=== PATIENT | female | born 1980 | race Two or more races ===

== ENCOUNTER 2023-11-04 00:30 | Emergency (ER) | payer MEDICAID, OTHER ==
[~2023-11-04] VITALS: Ht 162.6 cm; Wt 105.0 kg
[2023-11-04 01:39] LABS: Basophils # (auto) 0 10 ^3/uL (0-0.2); Basophils % (auto) 0.4 % (0.0-2.0); Eosinophils # (auto) 0 10 ^3/uL (0-0.8); Eosinophils % (auto) 0.2 % (0.0-7.0); Hemoglobin 15.1 g/dL (12.2-16.2); Lymphocytes # (auto) 0.9 10 ^3/uL (0.4-5.4); Lymphocytes % (auto) 12.7 % (10.0-50.0); Mean Corpuscular Hemoglobin 28.2 pg (28.0-32.0); Mean Corpuscular Volume 85.5 fL (80.0-100.0); Monocytes # (auto) 0.3 10 ^3/uL (0-1.3); Monocytes % (auto) 3.9 % (0.0-12.0); Neutrophils # (auto) 5.9 10 ^3/uL (1.6-8.6); Neutrophils % (auto) 82.8 % (37.0-80.0); Red Blood Cells 5.38 10^6/uL (4.0-5.20); White Blood Cell 7.1 10^3/uL (4.4-10.8)
[2023-11-04 01:59] LABS: Alanine Aminotransferase 39 U/L (7-40); Albumin 4.7 g/dL (3.2-4.8); Alkaline Phosphatase 69 U/L (46-116); Anion Gap 11 (5-15); Aspartate Aminotransferase 16 U/L (13-40); BUN/Creatinine Ratio 5.9 (10.0-20.0); Bilirubin, Total 0.7 mg/dL (0.2-1.0); Blood Urea Nitrogen 28 mg/dL (9-23); Calcium 10.2 mg/dL (8.7-10.4); Carbon Dioxide 24 mmol/L (20-30); Chloride 103 mmol/L (98-107); Glucose 121 mg/dL (74-106); Lipase 29 U/L (12-53); Potassium 4.3 mmol/L (3.5-5.1); Sodium 138 mmol/L (136-145); Total Protein 8.1 g/dL (5.7-8.2)
[2023-11-04] MEDS ORDERED: HYDROmorphone HCL 2 MG/ML VL/or syr IM ONE (02:00)
[2023-11-04] MEDS ORDERED: ZOFR4T SL (04:45)
[2023-11-04 05:18] VITALS: BP 160/98; TEMP 98.3
[2023-11-04 05:19] VITALS: PULSE 101; RESP 16; O2SAT 100
[2023-11-04] MEDS: ONDANSETRON HCL 4 MG/2 ML VIAL IM ONE (05:38)
[2023-11-04] MEDS: HYDROcodone-ACET 5/325MG TAB PO ONE (05:39)
== END 2023-11-04 06:07 | disposition home or self-care (01) ==
LOC: ER 00:30
DX: R11.2 Nausea with vomiting, unspecified (principal); R10.2 Pelvic and perineal pain; R10.84 Generalized abdominal pain; M54.50 Low back pain, unspecified; R07.9 Chest pain, unspecified; E11.22 Type 2 diabetes mellitus with diabetic chronic kidney disease; I12.0 Hypertensive chronic kidney disease with stage 5 chronic kidney disease or end stage renal disease; N18.6 End stage renal disease; I48.91 Unspecified atrial fibrillation; F20.9 Schizophrenia, unspecified
CPT/HCPCS: 36415; 80053; 83690; 84484; 84702; 85025; 96372; 99283; J2405